=== PATIENT | male | born 1945 | race Caucasian/White ===

== ENCOUNTER 2022-01-29 09:34 | Inpatient (IN) | payer SELFPAY ==
[~2022-01-29] VITALS: Ht 167.6 cm; Wt 74.8 kg
[2022-01-29 09:42] VITALS: BP 192/74
--- NOTE | 2022-01-29 10:33 | NUR ---
76 y/o male, pt presents to ed with c/o abd pain for 3 days. pt states his pain has been gradually increasing and is now having nausea with cp. denies vomiting, diarrhea, fever, chills, cough, sob. a&ox4, surinamese speaking, ambulates with steady gait. pmh: htn, dm2, coronary artery disease nka
[2022-01-29 11:30] LABS: BASOPHILS % (AUTO) 0.6 % (0.0-2.0); EOSINOPHILS # (AUTO) 0.1 K/uL (0-0.4); EOSINOPHILS % (AUTO) 1.7 % (0.0-4.0); HEMATOCRIT 33.7 % (36-52); HEMOGLOBIN 11.5 g/dL (12.0-18.0); LYMPHOCYTES # (AUTO) 0.9 K/uL (2.0-11.5); LYMPHOCYTES % (AUTO) 20.1 % (20.5-51.1); MEAN CORPUSCULAR HEMOGLOBIN 31 pg (27-31); MEAN CORPUSCULAR HGB CONC 34 g/dL (33-37); MEAN CORPUSCULAR VOLUME 91.8 fL (80-94); MONOCYTES # (AUTO) 0.3 K/uL (0.8-1.0); MONOCYTES % (AUTO) 8.1 % (1.7-9.3); NEUTROPHILS # (AUTO) 2.9 K/uL (1.8-7.7); NEUTROPHILS % (AUTO) 69.5 % (42.2-75.2); PLATELET COUNT (AUTO) 85 K/uL (140-450); RED BLOOD CELL COUNT(AUTO) 3.67 MIL/uL (4.20-6.10); RED CELL DISTRIBUTION WIDTH 14.2 % (11.6-13.7); WHITE BLOOD COUNT (AUTO) 4.2 K/uL (4.8-10.8)
[2022-01-29 12:02] LABS: ALBUMIN 3.4 g/dL (3.4-5.0); ANION GAP 14.1 (8-16); ASPARTATE AMINOTRANSFERASE 25 U/L (15-37); CARBON DIOXIDE 20.3 mmol/L (21-32); CHLORIDE 112 mmol/L (98-107); CREATININE 1.3 mg/dL (0.6-1.3); GLUCOSE 96 mg/dL (74-106); LIPASE 136 U/L (73-393); SODIUM SERUM 140 mmol/L (136-145); TOTAL BILIRUBIN 0.8 mg/dL (0.0-1.0); UREA NITROGEN, BLOOD 36 mg/dL (7-18)
--- NOTE | 2022-01-29 12:22 | NUR ---
Ultrasound at bedside.
[2022-01-29 12:24] LABS: POTASSIUM 6.4 mmol/L (3.5-5.1)
[2022-01-29] MEDS ORDERED: ALBUTEROL 0.083% 2.5 MG/3 ML NEBU INH ONE (12:45)
[2022-01-29] MEDS ORDERED: CALCIUM GLUC 1 GM/50 mL NS BAG 50 ML IV ONE (12:45)
[2022-01-29] MEDS ORDERED: INSULIN REGULAR, HUMAN 100 UNIT/ML VIAL SUBQ ONE (12:45)
[2022-01-29] MEDS ORDERED: DEXTROSE 50% 50 ML SYR IVP ONE (12:45)
[2022-01-29] MEDS ORDERED: POTASSIUM CHLORIDE 10 MEQ TABER PO PRN (13:05)
[2022-01-29] MEDS ORDERED: MORPHINE SULFATE 2 MG/ML SYR IVP PRN (13:05)
[2022-01-29] MEDS ORDERED: LORazepam 2 MG/ML VIAL IVP PRN (13:05)
[2022-01-29] MEDS ORDERED: DOCUSATE SODIUM 100 MG GELCAP PO PRN (13:05)
[2022-01-29] MEDS ORDERED: ONDANSETRON 4 MG/2 ML VIAL IVP PRN (13:05)
[2022-01-29] MEDS ORDERED: ACETAMINOPHEN 325 MG TAB PO PRN (13:05)
[2022-01-29] MEDS ORDERED: ZOLPIDEM 10 MG TAB PO PRN (13:05)
[2022-01-29] MEDS ORDERED: MAG SULF 2000 MG/WATER PREMIX 50 ML IV PRN (13:05)
[2022-01-29] MEDS ORDERED: ALPR2TAB1 PO ×2 (13:27)
[2022-01-29] MEDS ORDERED: TELM40TA1 PO (13:27)
[2022-01-29] MEDS ORDERED: ATOR20TA PO (13:27)
[2022-01-29] MEDS ORDERED: CLOP75TA55 PO (13:27)
[2022-01-29] MEDS ORDERED: SPIR25TA20 PO (13:27)
[2022-01-29] MEDS ORDERED: DEXTROSE 50% 50 ML SYR IVP PRN (13:40)
[2022-01-29] MEDS ORDERED: SODIUM ZIRCONIUM CYCLOSILICATE 10 GM POWD.PACK PO SCH (14:00)
--- NOTE | 2022-01-29 14:20 | NUR ---
Patient will be admitted to care of Aram KELLY. Admitted to [facility]. Will go to room 123a. Belongings list completed. Report to maritza gregg.
[2022-01-29 16:23] VITALS: BP 188/67
[2022-01-29 16:25] VITALS: BP 192/74
[2022-01-29] MEDS: BLOOD GLUCOSE MONITORING 1 DEV DEV FS SCH ×2 (16:39→21:17)
--- NOTE | 2022-01-29 19:04 | NUR ---
pt hr was Gio 41\hr early but now 56\hr. pt sitting and eating with family members at bed side.[id number]
--- NOTE | 2022-01-29 19:30 | NUR ---
RECEIVED REPORT FROM ARELIS LOCKE RN FOR CONTINUITY OF CARE. PTIS A&OX4 MONGOLIAN SPEAKING. FAMILY IS AT BEDSIDE.PT IS ON VACATION FROM [place] FOR 30 DAYS. DENIES PAIN. ON RM AIR/O2 WITH NO ACUTE DISTRESS. RR EVEN AND UNLABORED WITH EQUAL CHEST RISE. GI IS INTACT. PT'S SKIN IS INTACT. PT IS AMBULATORY AND CONTINENT. CLEAN CATCH URINE WAS COLLECTED AND SENT TO LAB. ALL SAFETY MEASURES IN PLACE. BED IS N LOW AND LOCKED POSITION. CALL LIGHT WITHIN REACH. WILL CONTINUE TO MONITOR.
[2022-01-29 20:00] VITALS: BP 153/52
[2022-01-29 20:41] LABS: ANION GAP 15.7 (8-16); CARBON DIOXIDE 18.2 mmol/L (21-32); CHLORIDE 112 mmol/L (98-107); CREATININE 1.5 mg/dL (0.6-1.3); GLUCOSE 165 mg/dL (74-106); POTASSIUM 5.9 mmol/L (3.5-5.1); SODIUM SERUM 140 mmol/L (136-145); UREA NITROGEN, BLOOD 37 mg/dL (7-18)
[2022-01-29] MEDS: INSULIN LISPRO SLIDING SCALE 100 UNITS/ML VIAL SUBQ PRN (21:17)
--- NOTE | 2022-01-29 21:30 | NUR ---
HS BLOOD [id number] COVERED WITH 2 UNITS HUMALOG INSULIN PER SLIDING SCALE. EXPLAINED ACTIONS TO PATIENT WHO VERBALIZED UNDERSTANDING.
[2022-01-30] VITALS: BP 152/76
[2022-01-30 02:54] LABS: APPEARANCE,URINE CLEAR (CLEAR); BILIRUBIN,URINE NEGATIVE (NEGATIVE); BLOOD, URINE TRACE-I (NEGATIVE); COLOR,URINE YELLOW (YELLOW); LEUKOCYTE ESTERASE ,URINE NEGATIVE (NEGATIVE); NITRITE, URINE NEGATIVE (NEGATIVE); UGLUCOSE NEGATIVE (NEGATIVE)
[2022-01-30 04:00] VITALS: BP 156/61
[2022-01-30 06:54] LABS: BASOPHILS % (AUTO) 0.4 % (0.0-2.0); EOSINOPHILS # (AUTO) 0.1 K/uL (0-0.4); EOSINOPHILS % (AUTO) 2.2 % (0.0-4.0); LYMPHOCYTES # (AUTO) 0.9 K/uL (2.0-11.5); LYMPHOCYTES % (AUTO) 23.2 % (20.5-51.1); MEAN CORPUSCULAR HEMOGLOBIN 32 pg (27-31); MEAN CORPUSCULAR HGB CONC 34 g/dL (33-37); MEAN CORPUSCULAR VOLUME 91.6 fL (80-94); MONOCYTES # (AUTO) 0.3 K/uL (0.8-1.0); MONOCYTES % (AUTO) 7.9 % (1.7-9.3); NEUTROPHILS # (AUTO) 2.5 K/uL (1.8-7.7); NEUTROPHILS % (AUTO) 66.3 % (42.2-75.2); PLATELET COUNT (AUTO) 90 K/uL (140-450); RED BLOOD CELL COUNT(AUTO) 3.49 MIL/uL (4.20-6.10); RED CELL DISTRIBUTION WIDTH 14.1 % (11.6-13.7); WHITE BLOOD COUNT (AUTO) 3.8 K/uL (4.8-10.8)
[2022-01-30 07:00] LABS: ANION GAP 14.1 (8-16); CARBON DIOXIDE 19.1 mmol/L (21-32); CHLORIDE 112 mmol/L (98-107); CREATININE 1.3 mg/dL (0.6-1.3); GLUCOSE 104 mg/dL (74-106); SODIUM SERUM 139 mmol/L (136-145); UREA NITROGEN, BLOOD 34 mg/dL (7-18)
--- NOTE | 2022-01-30 07:20 | NUR ---
ND=[id number] NO INSULIN COVERAGE NEEDED. PT SLEPT SOUNDLY. DENIES PAIN. VSS AFEBRILE.
--- NOTE | 2022-01-30 07:23 | NUR ---
RECEIVED REPORT FROM THE NIGHT NURSE, PT SLEEPING, NO SOB.[id number]
[2022-01-30 07:40] LABS: POTASSIUM 6.2 mmol/L (3.5-5.1)
[2022-01-30] MEDS: BLOOD GLUCOSE MONITORING 1 DEV DEV FS SCH ×4 (07:50→21:40)
[2022-01-30 08:00] VITALS: BP 155/55
[2022-01-30] MEDS: amLODIPine 5 MG TAB PO SCH (08:29)
[2022-01-30] MEDS ORDERED: SODIUM ZIRCONIUM CYCLOSILICATE 10 GM POWD.PACK PO SCH (08:37)
[2022-01-30] MEDS: LACTULOSE 20 GM/30 ML UDC PO SCH ×2 (09:16→21:37)
--- NOTE | 2022-01-30 10:00 | NUR ---
PATIENT HAS BEEN SCREENED AND CATEGORIZED HIGH NUTRITION RISK. PATIENT WILL BE SEEN WITHIN 1-2 DAYS OF ADMISSION. REFERRAL RECEIVED FOR NAUSEA OVER THREE DAYS [address]
[2022-01-30] MEDS ORDERED: SODIUM PHOSPHATE 118 ML ENEM RC SCH (10:50)
[2022-01-30] MEDS: INSULIN LISPRO SLIDING SCALE 100 UNITS/ML VIAL SUBQ PRN (11:52)
[2022-01-30 12:00] VITALS: BP 155/55
[2022-01-30 16:00] VITALS: BP 148/58
--- NOTE | 2022-01-30 19:25 | NUR ---
RECEIVED REPORT FROM AM NURSE. PATIENT RESTING, ON ROOM AIR. NO SOB NOTED. IV ACCESS ON THE LFA 22 GAUGE SALINE LOCK. DENIES PAIN. ALL SAFETY MEASURES ARE IN PLACE. CALL LIGHT WITHIN REACH. WILL CONTINUE TO MONITOR.
[2022-01-30 20:00] VITALS: BP 148/58
--- NOTE | 2022-01-30 21:37 | NUR ---
SCHEDULED MEDICATION ADMINISTERED ORDERED.
--- NOTE | 2022-01-30 21:40 | NUR ---
BLOOD SUGAR CHECK WAS 146, NO INSULIN COVERAGE NEEDED.
[2022-01-31] VITALS: BP 142/53
--- NOTE | 2022-01-31 03:01 | NUR ---
PATIENT SLEEPING, BREATHING NORMAL WITH SYMMETRICAL RISE AND FALL OF THE CHEST.
[2022-01-31] MEDS: BLOOD GLUCOSE MONITORING 1 DEV DEV FS SCH ×4 (07:30→20:06)
--- NOTE | 2022-01-31 07:40 | NUR ---
RECEIVED PT FROM NIGHT RN, PT IS ALERT, AWAKE AND ORIENTED, ON ROOM AIR, AMBULATORY, IV LINE NOTED ON THE LEFT FOREARM G. 22 ON SALINE LOCK, NO SIGN OF DISTRESS NOTED AND WILL CONTINUE TO MONITOR PT.
[2022-01-31 08:00] VITALS: BP 150/42
[2022-01-31 09:11] LABS: BASOPHILS % (AUTO) 0.4 % (0.0-2.0); EOSINOPHILS # (AUTO) 0.1 K/uL (0-0.4); HEMATOCRIT 32.3 % (36-52); HEMOGLOBIN 10.9 g/dL (12.0-18.0); LYMPHOCYTES % (AUTO) 21.2 % (20.5-51.1); MEAN CORPUSCULAR HEMOGLOBIN 31 pg (27-31); MEAN CORPUSCULAR HGB CONC 34 g/dL (33-37); MEAN CORPUSCULAR VOLUME 92.1 fL (80-94); MONOCYTES # (AUTO) 0.4 K/uL (0.8-1.0); MONOCYTES % (AUTO) 8.2 % (1.7-9.3); NEUTROPHILS % (AUTO) 67.2 % (42.2-75.2); PLATELET COUNT (AUTO) 107 K/uL (140-450); RED BLOOD CELL COUNT(AUTO) 3.51 MIL/uL (4.20-6.10); RED CELL DISTRIBUTION WIDTH 14.1 % (11.6-13.7); WHITE BLOOD COUNT (AUTO) 4.5 K/uL (4.8-10.8)
[2022-01-31] MEDS: LACTULOSE 20 GM/30 ML UDC PO SCH ×2 (09:57→20:06)
--- NOTE | 2022-01-31 09:57 | NUR ---
PT WAS GIVEN THE SCHEDULED AM MEDICATIONS NOW, PARAMETER CHECKED AN TOLERATED, WILL MONITOR PT.
[2022-01-31] MEDS: amLODIPine 5 MG TAB PO SCH (09:58)
[2022-01-31 10:01] LABS: ANION GAP 14.4 (8-16); CARBON DIOXIDE 20.9 mmol/L (21-32); CHLORIDE 110 mmol/L (98-107); CREATININE 1.3 mg/dL (0.6-1.3); GLUCOSE 119 mg/dL (74-106); POTASSIUM 5.3 mmol/L (3.5-5.1); SODIUM SERUM 140 mmol/L (136-145); UREA NITROGEN, BLOOD 35 mg/dL (7-18)
--- NOTE | 2022-01-31 12:21 | NUR ---
DR. RODRIGUES GAVE A TELEPHONE ORDER THAT PT CAN EAT NOW.
--- NOTE | 2022-01-31 15:19 | NUR ---
01/31/22 RD INITIAL ASSESSMENT COMPLETED PLEASE REFER TO NUTRITION ASSESSMENT UNDER CARE ACTIVITY FOR ESTIMATED NUTRITIONAL NEEDS. 1. CONTINUE CCHO 45GM/ NA 2 GM / K 2 GM/ RENAL/ PRO 80G DIET TOLERATED. 2. WILL CONTINUE TO MONITOR NUTRITION RELATED LAB VALUES. 3. RD TO FOLLOW-UP 7 DAYS, LOW RISK REVIEWED BY KEITH LEDEZMA RD
[2022-01-31 16:00] VITALS: BP 156/66
--- NOTE | 2022-01-31 19:20 | NUR ---
ENDORSED PT TO NIGHT RN FOR CONTINUITY OF CARE, PT IS STABLE AT THIS TIME.
--- NOTE | 2022-01-31 19:25 | NUR ---
RECEIVED PATIENT IN BED, AWAKE,ALERT AND ORIENTED. FAMILY MEMBER AT THE BEDSIDE. DENIES PAIN AT THIS TIME. NO ACUTE RESPIRATORY DISTRESS NOTED. SKIN WARM AND DRY TO TOUCH. BED IN THE LOWEST AND LOCKED POSITION FOR SAFETY, CALL LIGHT IN REACH.
[2022-01-31] MEDS: INSULIN LISPRO SLIDING SCALE 100 UNITS/ML VIAL SUBQ PRN (20:06)
[2022-02-01] VITALS: BP 151/49
--- NOTE | 2022-02-01 00:05 | NUR ---
vital signs taken and documented. patient watching tv at this time. no acute respiratory distress noted. call light in reach.
--- NOTE | 2022-02-01 02:06 | NUR ---
rounding done. patient asleep. breathing even and unlabored.
[2022-02-01 05:44] LABS: BASOPHILS % (AUTO) 0.5 % (0.0-2.0); EOSINOPHILS # (AUTO) 0.2 K/uL (0-0.4); EOSINOPHILS % (AUTO) 3.4 % (0.0-4.0); HEMATOCRIT 31.3 % (36-52); HEMOGLOBIN 10.5 g/dL (12.0-18.0); LYMPHOCYTES # (AUTO) 1.2 K/uL (2.0-11.5); LYMPHOCYTES % (AUTO) 24.8 % (20.5-51.1); MEAN CORPUSCULAR HEMOGLOBIN 31 pg (27-31); MEAN CORPUSCULAR HGB CONC 34 g/dL (33-37); MEAN CORPUSCULAR VOLUME 91.8 fL (80-94); MONOCYTES # (AUTO) 0.4 K/uL (0.8-1.0); MONOCYTES % (AUTO) 8.6 % (1.7-9.3); NEUTROPHILS % (AUTO) 62.7 % (42.2-75.2); PLATELET COUNT (AUTO) 101 K/uL (140-450); RED BLOOD CELL COUNT(AUTO) 3.41 MIL/uL (4.20-6.10); RED CELL DISTRIBUTION WIDTH 14.1 % (11.6-13.7); WHITE BLOOD COUNT (AUTO) 4.8 K/uL (4.8-10.8)
[2022-02-01 06:01] LABS: ANION GAP 13.2 (8-16); CARBON DIOXIDE 22.3 mmol/L (21-32); CHLORIDE 111 mmol/L (98-107); CREATININE 1.3 mg/dL (0.6-1.3); GLUCOSE 111 mg/dL (74-106); POTASSIUM 5.5 mmol/L (3.5-5.1); SODIUM SERUM 141 mmol/L (136-145); UREA NITROGEN, BLOOD 35 mg/dL (7-18)
--- NOTE | 2022-02-01 06:14 | NUR ---
PATIENT IS AWAKE,ALERT AND ORIENTED. NO DISTRESS NOTED. ALL NEEDS ATTENDED TO. SAFETY PRECAUTIONS MAINTAINED DURING THE SHIFT, CALL LIGHT REMAINED WITHIN REACH.
--- NOTE | 2022-02-01 06:23 | NUR ---
SPOKE WITH [facility], MACHINE STILL NOT WORKING, FOLLOW UP LATER.
[2022-02-01] MEDS: BLOOD GLUCOSE MONITORING 1 DEV DEV FS SCH ×3 (06:28→16:49)
--- NOTE | 2022-02-01 07:26 | NUR ---
RECEIVED REPORT FROM WOODYARD OPERATOR NURSE FOR CONTINUTIY OF CARE. PT IN BED ON HIS PHONE AT THIS TIME. RESPIRATIONS ARE EVEN AND UNLABORED ON ROOM AIR. NO SIGNS OF DISTRESS NOTED. PT IS ALERT AND ORIENTED X4, ABLE TO VERBALIZE NEEDS, ABLE TO FOLLOW COMMANDS. PT IS ON CCHO DIET, TOLERATING WELL. PT IS CONTINENT OF BOWEL AND BLADDER, PT UTILIZES URINAL AT BEDSIDE. SKIN IS WARM, DRY, AND INTACT. PT HAS IV TO L HAND, 22G, SALINE LOCKED. CALL LIGHT WITHIN REACH. ALL SAFETY MEASURES IN PLACE. WILL CONTINUE TO MONITOR.
[2022-02-01 08:00] VITALS: BP 163/53
[2022-02-01] MEDS: LACTULOSE 20 GM/30 ML UDC PO SCH (08:54)
[2022-02-01] MEDS: amLODIPine 5 MG TAB PO SCH (08:55)
--- NOTE | 2022-02-01 08:56 | NUR ---
ADMINISTERED ALL SCHEDULED MEDICATIONS. EDUCATED PT ON MEDS ADMINISTERED. PT TOLERATED WELL.
[2022-02-01] MEDS ORDERED: APR10 PO (10:57)
[2022-02-01] MEDS ORDERED: MIRABULK PO (10:58)
--- NOTE | 2022-02-01 11:40 | NUR ---
PT BLOOD GLUCOSE 309. COVERED PER SLIDING SCALE. WILL CONTINUE TO MONITOR.
[2022-02-01] MEDS: INSULIN LISPRO SLIDING SCALE 100 UNITS/ML VIAL SUBQ PRN (11:45)
[2022-02-01] MEDS ORDERED: METF-1253 PO (12:04)
--- NOTE | 2022-02-01 12:21 | NUR ---
NOTIFIED DR. STEVENS REGARDING PT HAS HIDA SCAN ORDERED, AND DC ORDERED. PER DR CRUZ TO FOLLOW UP WITH PCP, NO HIDA AT THIS TIME.
--- NOTE | 2022-02-01 14:23 | NUR ---
INFORMED PT THAT HE HAS DC ORDER, HOWEVER, PER DR STEVENS, PT WILL HAVE US OF KIDNEYS DONE AND IF IT LOOKS CLEAR, PT MAY DC TODAY. PT VERBALIZED UNDERSTANDING. WILL CONTINUE TO MONITOR.
[2022-02-01 16:00] VITALS: BP_SYST 128; BP_SYST 160; BP_DIAS 56; BP_DIAS 71
--- NOTE | 2022-02-01 17:19 | NUR ---
BLADDER SCAN DONE. 0 ML URINE AFTER BLADDER SCAN. PER MD, WILL CONTINUE WITH DISCHARGE. PT MADE AWARE. PT IN AGREEMENT WITH DISCHARGE.
[2022-02-01 17:39] VITALS: BP 160/56
--- NOTE | 2022-02-01 18:15 | NUR ---
WENT OVER DISCHARGE PAPERWORK. ANSWERED ALL QUESTIONS. PT SIGNED ALL PAPERWORK. REMOVED IV, IV CATHETER INTACT. ALL BELONGINGS TAKEN UPON DISCHARGE. PT DISCHARGED HOME WITH FAMILY.
[2022-02-02] MEDS ORDERED: TAMSULOSIN 0.4 MG CAP PO SCH (08:30)
[2022-02-02] MEDS ORDERED: SODIUM ZIRCONIUM CYCLOSILICATE 10 GM POWD.PACK PO SCH (09:00)
== END 2022-02-01 18:15 | disposition home or self-care (01) | DRG 391 ==
LOC: MED 09:34 → MTU 13:02
PROVIDERS: ADMIT Family Medicine; ATTEND Family Medicine
DX: K52.9 Noninfective gastroenteritis and colitis, unspecified (principal); N17.0 Acute kidney failure with tubular necrosis; I42.9 Cardiomyopathy, unspecified; I13.0 Hypertensive heart and chronic kidney disease with heart failure and stage 1 through stage 4 chronic kidney disease, or unspecified chronic kidney disease; D64.9 Anemia, unspecified; E87.5 Hyperkalemia; N28.1 Cyst of kidney, acquired; N40.0 Benign prostatic hyperplasia without lower urinary tract symptoms; E87.8 Other disorders of electrolyte and fluid balance, not elsewhere classified; K59.00 Constipation, unspecified; Z20.822 Contact with and (suspected) exposure to COVID-19; I25.10 Atherosclerotic heart disease of native coronary artery without angina pectoris; N18.9 Chronic kidney disease, unspecified; E11.22 Type 2 diabetes mellitus with diabetic chronic kidney disease; E11.65 Type 2 diabetes mellitus with hyperglycemia; Z87.891 Personal history of nicotine dependence; Z79.899 Other long term (current) drug therapy
CPT/HCPCS: 36415; 71045; 76705; 76770; 80048; 80053; 81001; 82948; 83690; 83735; 84484; 85025; 87081; 87086; 93005; 96372; 96374; 99291; J0610; J1815; J3475; Q0092